=== PATIENT | female | born 1945 | race Caucasian/White ===

== ENCOUNTER 2018-01-04 17:18 | Emergency (ER) | payer OTHER ==
[~2018-01-04] VITALS: Ht 162.6 cm; Wt 113.4 kg
[~2018-01-04 17:18] MED LIST: ADVAIR 250-501 EACH INH; ALLOPURINOL 10100 M1 PO; AMITRIPTYLINE H25 M2 PO; GABAPENTIN 100100 MG PO; LEVOTHYROXIN0.075 MG PO; LISINOPRIL10 MG PO; MOBIC7.5 MG PO; NORCO 5-325 TA1 EACH PO; PERCOCET PO; PRILOSEC20 MG PO; SEROQUEL 25 MG25 M1 PO; ZANAFLEX4 M1 PO
[2018-01-04 18:04] LABS: URINE BILIRUBIN NEGATIVE (Negative); URINE BLOOD NEGATIVE (Negative); URINE CLARITY CLEAR; URINE COLOR YELLOW; URINE GLUCOSE-RANDOM* NEGATIVE (Negative); URINE KETONES NEGATIVE (Negative); URINE NITRITE-REFLEX NEGATIVE (Negative); URINE PROTEIN (DIPSTICK) NEGATIVE (Negative); URINE SPECIFIC GRAVITY <= 1.005 (1.005-1.035); URINE UROBILINOGEN 0.2 E.U./dl (0.2-1.0)
[2018-01-04 18:05] LABS: URINE LEUKOCYTES-REFLEX 2+ (Negative)
[2018-01-04 18:17] LABS: CASTS None Seen /LPF (None Seen); CRYSTALS None Seen /LPF (None Seen); SQUAMOUS 0-3 Few /LPF (0-3); URINE RBC None Seen /HPF (0-2); URINE WBC-REFLEX 0-5 Rare /HPF (0-5)
[2018-01-04 18:18] LABS: BACTERIA-REFLEX 1-9 Few /HPF (None Seen)
[2018-01-04 18:19] LABS: ABSOLUTE NEUTROPHILS 6.2 thou/uL (1.4-8.2); BASOPHILS 1.1 % (0.0-2.0); EOSINOPHILS 5.6 % (0.0-3.0); HEMATOCRIT 42.1 % (37.0-47.0); HEMOGLOBIN 14.3 gm/dL (12.0-15.0); LYMPHOCYTES 29.7 % (24.0-44.0); MCH 31.3 pg (26.0-34.0); PLATELET COUNT 221 thou/uL (150-400); POLYS 57.6 % (36.0-66.0); RBC 4.58 mil/uL (4.20-5.00); RDW 15.5 % (10.5-14.5); WBC 10.9 thou/uL (4.0-11.0)
[2018-01-04 18:27] LABS: CALCIUM 9.6 mg/dL (8.5-10.1)
[2018-01-04 18:33] LABS: ALBUMIN 3.3 g/dL (3.4-5.0); TOTAL BILIRUBIN 0.6 mg/dL (<0.1-1.0)
[2018-01-04] MEDS ORDERED: BENTYL 10 MG CA10 M1 PO (19:35)
[2018-01-04] MEDS ORDERED: MIRALAX17 GM PO (19:35)
[2018-01-04 19:51] VITALS: BP 122/69
== END 2018-01-04 19:53 | disposition home or self-care (01) ==
LOC: ER 17:18
PROVIDERS: Student in an Organized Health Care Education/Training Program
DX: R10.9 Unspecified abdominal pain (principal); M19.90 Unspecified osteoarthritis, unspecified site; G89.29 Other chronic pain; M79.606 Pain in leg, unspecified; Z88.5 Allergy status to narcotic agent; Z90.5 Acquired absence of kidney; Z94.0 Kidney transplant status